=== PATIENT | female | born 1995 | race Caucasian/White ===

== ENCOUNTER 2018-11-30 10:42 | Outpatient (CLI) | payer BC ==
--- NOTE | 2018-11-30 12:20 | ULT ---
LEFT BREAST ULTRASOUND: Date: 11/30/18 HISTORY: Palpable mass that is about the size of a pea at the 5 o'clock position of the left breast. Patient i s a 23-year-old female. COMPARISON: None. TECHNIQUE: Multiplanar Nieto scale and color Doppler images were obtained in a targeted ultrasound of the area of palpable abnormality at the 5 o'clock position of the left breast. FINDINGS: A tiny, anechoic cyst is seen, measuring approximately 3.0 mm in greatest dimension. This is likely s maller than the patient's palpable abnormality. Normal appearing breast parenchyma is also seen in th is location. The patient likely feels normal breast tissue. No suspicious solid mass or shadowing is seen. IMPRESSION: BIRADS Category 2 - Benign findings. Annual screening mammography is recommended. POS: ROXY
== END 2018-11-30 10:43 | disposition home or self-care (01) ==
LOC: BICULT 10:42
PROVIDERS: ATTEND Student in an Organized Health Care Education/Training Program
DX: N63.23 Unspecified lump in the left breast, lower outer quadrant (principal)